=== PATIENT | male | born 1935 | race Caucasian/White ===

== ENCOUNTER 2017-03-11 23:44 | Inpatient (IN) | payer MEDICARE, OTHER ==
--- NOTE | ~2017-03-11 | DS ---
Discharge Summary [facility] [address] [facility] [place] [address] NAME: ELIER WATSON JUNIOR : 37 STATUS : DIS IN PAT#: [id number] AGE: 82 ADM/REG DATE : 03/12/17 MR#: [id number] REPORT SERV DATE: 03/13/17 DICTATED BY: PASTOR RIOS DATE: 03/13/17 REPORT STATUS : Draft TRANSCRIBED BY: MODL DATE: 03/13/17 ADMISSION DATE: 03/12/2017 DISCHARGE DATE: 03/13/2017 DISCHARGE DIAGNOSES: 1. Metastatic prostate cancer to the spine. 2. Left hydronephrosis most likely due to tumor burden. 3. Gastrointestinal bleed, lower and now resolved. 4. Recent cerebrovascular accident with hemiplegia, and bed-bound state. 5. Nonischemic cardiomyopathy with an ejection fraction of 25%. 6. Severe mitral regurgitation. 7. Poor performance status with the bed-bound state. 8. Hypothyroidism. 9. Atrial fibrillation. 10.Pacer/AICD placement. 11.Gastroesophageal reflux disease. 12.Arteriovenous malformations of the colon. 13.Medication induced idiopathic thrombocytopenic purpura. 14.History of thyroid cancer in 2008 status post radioiodine ablation and surgery followed by Dr. Malone. CONSULTANTS DURING THIS HOSPITALIZATION: Dr. Mata of Urology. INVASIVE PROCEDURES DONE DURING THIS HOSPITALIZATION: None. BRIEF HISTORY OF PRESENT ILLNESS: The patient is an 82-year-old white male with a recent large stroke and hemiplegia, was at a [facility], presented with bright red blood per rectum, so he was admitted for detailed history and physical exam, please see the note dictated by Dr. Raghav Francisco on 03/12/2017. HOSPITAL COURSE: After being admitted to the hospital, this patient underwent fluid resuscitation. When I saw the patient and reviewed his care, it was evident that this patient has severely debilitated state, poor performance status, and multiple comorbidities, and terminal illnesses which would preclude him from any kind of surgical intervention, chemotherapy or radiation therapy at that point, I had a long discussion with the family regarding hospice, and the family has decided to return the patient back to nursing home facility with comfort measures, but no hospice due to financial resources. This patient remains critically ill from multiple comorbidities, but the approach is correct to keep him comfortable. We have discontinued his Coumadin as he is not a candidate for that at this time because of his GI bleed. His H and H have remained stable in the last [address] Mata agrees that there is no further urological intervention for the left hydronephrosis which may be partially blocked. He does have a normal creatinine and a normal functioning right kidney. DISCHARGE DISPOSITION: Back to nursing home facility. Discharge Summary [address] [place]. [address] NAME: ELIER WATSON JUNIOR : 36 STATUS : DIS IN PAT#: [id number] AGE: 82 ADM/REG DATE : 03/12/17 MR#: [id number] REPORT SERV DATE: 03/13/17 DICTATED BY: PASTOR RIOS DATE: 03/13/17 REPORT STATUS : Draft TRANSCRIBED BY: OPAL DATE: 03/13/17 DISCHARGE ACTIVITY: The patient is bed-bound. DISCHARGE DIET: The patient is on tube feedings. DISCHARGE MEDICATIONS: Norvasc 5 mg once daily, aspirin 81 mg once daily, digoxin 0.125 mg once daily, Isordil 10 mg twice daily, levothyroxine 25 mcg once daily, levothyroxine plus 200 mcg daily, Reglan 10 mg before every meal, Lopressor 50 mg twice daily, Prilosec 20 mg once daily, Entresto 49/51 mg one tablet twice daily, Aldactone 25 mg once daily, Dulcolax 10 mg daily per rectum p.r.n., docusate 50 mg twice daily p.r.n., Lasix 40 mg p.o. twice daily, and Crestor 20 mg p.o. once at bedtime. DISCHARGE FOLLOWUP: With the physician at the nursing home facility. More than 30 minutes spent in planning this patient's discharge, discussing hospice care, and making arrangements for returning back the patient to the nursing home facility for comfort measures. This patient truly meets criteria for inpatient as it would have not been possible to arrange all these in an outpatient setting without having extensive discussions with the family in the outpatient setting. DICTATED BY: Anabelle White/OPAL Pastor Rios M.D. / [id number] CC: MD Sam Hernandez M.D.
--- NOTE | ~2017-03-11 | HP ---
History And Physical [place] [id number] [facility] [place]. [address] NAME: ELIER WATSON JUNIOR : 36 STATUS : ADM IN [facility]#: [id number] AGE: 82 ADM/REG DATE : 03/12/17 MR#: [id number] REPORT SERV DATE: 03/12/17 DICTATED BY: STORM CRESPO DATE: 03/12/17 REPORT STATUS : Draft TRANSCRIBED BY: MODL DATE: 03/12/17 DATE OF ADMISSION: 03/12/2017 CHIEF COMPLAINT: An 82-year-old male with recent stroke in early 02/2017, now presenting with bright red blood per rectum, confusion, back pain, and abdominal pain. HISTORY OF PRESENTING ILLNESS: The patient's history was obtained through interview with the patient's by telephone, a limited interview with the patient himself, review of medical records from [facility], as well as medical records obtained from [facility] and from [facility] [place]. The patient presented with a stroke in 02/2017 at [facility]. He apparently has had new-onset left hemiplegia, debilitation, dysarthria, aphasia, and dysphagia requiring a PEG tube. He was able to recover from the stroke to a degree, but needed rehabilitation, so was sent to [facility] earlier this month. He has had limited improvement in his physical therapy and recovery at that facility, but then in the last few days, has been describing increasing back pain and abdominal pain. He is able to describe it in his mid and lower back as well as the suprapubic area of his abdomen, an aching quality, very severe, but he is unable to give a numerical severity. Also tonight, the patient became overtly confused, lethargic at times and he had worsening of his baseline aphasia associated with this. What was of particular concern to the facility, the patient also had a large bloody bowel movement. REVIEW OF SYSTEMS: Otherwise, a 14-point review of systems was obtained and was negative, though could question validity in light of the patient's confusion and lethargy. PAST MEDICAL HISTORY: 1. Stroke with left hemiplegia, dysphagia, and aphasia. 2. Thyroid cancer, 2009, status post iodine ablation and surgery, followed by Dr. Malone. 3. Hypothyroidism. 4. Prostate cancer, status post radiation therapy, seen by Dr. Martin. 5. Atrial fibrillation. 6. Pacer/AICD placement. 7. Systolic congestive heart failure with nonischemic cardiomyopathy, 25% ejection fraction, followed by Dr. Chaidez. 8. Gastroesophageal reflux disorder, peptic ulcer disease, seen by [facility]. 9. Angioectasia of the colon. 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 11.Urinary tract infections. History And Physical [address] [address] NAME: ELIER WATSON JUNIOR : 37 STATUS : ADM IN [facility]#: [id number] AGE: 82 ADM/REG DATE : 03/12/17 MR#: [id number] REPORT SERV DATE: 03/12/17 DICTATED BY: STORM CRESPO DATE: 03/12/17 REPORT STATUS : Draft TRANSCRIBED BY: OPAL DATE: 03/12/17 12.Severe mitral regurgitation, moderate aortic regurgitation, moderate tricuspid regurgitation. 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 PAST SURGICAL HISTORY: 1. Pacer/AICD placement. 2. Thyroidectomy. 3. Emilio fundoplication. 4. PEG tube placement. 5. Bilateral hernia repair. 6. Right rotator cuff repair. 7. Vein stripping, bilateral legs. CODE STATUS: DNR. ALLERGIES: PENICILLIN. SOCIAL HISTORY: No tobacco abuse. No alcohol abuse. Resides at [facility]. Retired from the [employer]. Lives in [place], [place]. Is . FAMILY HISTORY: Father with coronary artery disease. Mother with stroke. Strong family history of cancer. CURRENT MEDICATIONS: Unknown at this time, but we have requested pharmacy to help us obtain a list. PHYSICAL EXAMINATION: VITAL SIGNS: Temperature 97.8, pulse 80, blood pressure 150/91, respiratory rate 18, O2 saturation 100% on 2 L nasal cannula. GENERAL: A chronically ill-appearing male. He is in no evidence of acute distress at this time. HEENT: Pupils equal, round, and reactive to light. No conjunctival pallor. No scleral icterus. Nares are patent. Oropharynx is clear of obstruction. Moist mucous membranes. NECK: Trachea midline. No thyromegaly. LYMPH: No cervical lymphadenopathy. No supraclavicular lymphadenopathy. RESPIRATORY: Clear to auscultation at bases. No wheezes, rales, or rhonchi. Normal respiratory effort. CARDIOVASCULAR: Regular rate and rhythm. No murmurs, rubs, or gallops. No extremity edema is appreciated. ABDOMEN: Significant suprapubic abdominal pain as well as bilateral flank pain. There is guarding. No rebound. Nondistended abdomen. No hepatosplenomegaly. DERMATOLOGICAL: Warm and dry extremities. No pallor. No cyanosis. PSYCHIATRIC: Normal affect. Good mood. The patient has difficulty with orientation to time, location, and his recent history. LABORATORY DATA: White blood cell count 5.9, hemoglobin 10, hematocrit 31, platelets 220. Sodium 143, potassium 3.3, chloride 106, bicarb 30, BUN 18, creatinine 0.95, glucose 151. History And Physical [address] [address] NAME: ELIER WATSON JUNIOR : 36 STATUS : ADM IN [facility]#: [id number] AGE: 82 ADM/REG DATE : 03/12/17 MR#: [id number] REPORT SERV DATE: 03/12/17 DICTATED BY: STORM CRESPO DATE: 03/12/17 REPORT STATUS : Draft TRANSCRIBED BY: OPAL DATE: 03/12/17 Brain natriuretic peptide 326. Troponin 0.06. INR 1.2. Liver enzymes, within normal limits. Urinalysis, negative for infection. STUDIES: 1. CT scan of the abdomen and pelvis shows extensive thoracic and lumbar spine osteoblastic lesions consistent with metastatic prostate cancer. Also, significant left hydroureter and hydronephrosis. 2. EKG by my own evaluation shows ventricular pacing. 3. Chest x-ray by my own evaluation shows no acute cardiopulmonary process. ASSESSMENT AND PLAN: 1. Metastatic prostate cancer. Obtain an Oncology consult to consider therapeutic options. Particularly, the patient is having spinal pain as we may consider radiation therapy? Check a PSA. 2. Hydronephrosis and hydroureter with possible pelvic mass effect causing this. Consult Dr. Mata, urologist, who is aware of the case. 3. Gastrointestinal bleed. Consult [facility]. The patient has positive Hemoccult. 4. Late effects of stroke with left hemiplegia, significant dysphagia. 5. PEG tube placed. 6. Nonischemic cardiomyopathy, ejection fraction 25% with severe mitral regurgitation, moderate aortic regurgitation, and moderate tricuspid regurgitation. Monitor volume status closely. KPL/MODL Storm Crespo M.D. / [id number] CC: MD VERNELL Hernandez MD
--- NOTE | ~2017-03-11 | CN ---
Consultation Report [address] [place]. [address] NAME: ELIER LOCKETT JUNIOR : 36 STATUS : ADM IN PAT#: [id number] AGE: 82 ADM/REG DATE : 03/12/17 MR#: [id number] REPORT SERV DATE: 03/13/17 DICTATED BY: Mayo WILLARD DATE: 03/13/17 REPORT STATUS : Draft TRANSCRIBED BY: OPAL DATE: 03/13/17 CONSULTATION DATE OF CONSULTATION: 03/12/2017 CHIEF COMPLAINT: Metastatic prostate cancer with new-onset left hydronephrosis. HISTORY OF PRESENT ILLNESS: Mr. Lockett is an 82-year-old white male, well known to me, with a history of prostate cancer treated with external beam radiation therapy at some point in the past. He developed a recurrence with a rising PSA and ultimately was put on androgen deprivation therapy. He has developed widely metastatic bony disease and has a host of other medical problems. He came in to the emergency room with bright red blood per rectum, confusion, and nonspecific back pain. He had a recent CVA earlier in February of this year. PAST MEDICAL HISTORY: 1. Prostate cancer, status post radiation therapy with widespread metastatic disease. 2. Recent CVA. 3. Thyroid cancer. 4. Hypothyroidism. 5. Severe congestive heart failure with cardiomyopathy. 6. GERD. 7. Recurrent urinary tract infections. 8. Severe mitral regurgitation. PAST SURGICAL HISTORY: 1. Placement of pacemaker. 2. Thyroidectomy. 3. Emilio fundoplication. 4. Vein stripping. 5. Right rotator cuff. 6. Bilateral hernia repair. HOME MEDICATIONS: Amlodipine, aspirin, bisacodyl, digoxin, docusate, furosemide, isosorbide, levothyroxine, metoclopramide, metoprolol, omeprazole, rosuvastatin, Entresto, spironolactone, Coumadin. ALLERGIES: PENICILLIN CAUSES HIVES. SOCIAL HISTORY: The patient denies current use of tobacco or alcohol. He resides in a shelter. FAMILY HISTORY: Negative for urologic disease. PHYSICAL EXAMINATION: Consultation Report [address] [place]. [address] NAME: ELIER LOCKETT JUNIOR : 37 STATUS : ADM IN PAT#: [id number] AGE: 82 ADM/REG DATE : 03/12/17 MR#: [id number] REPORT SERV DATE: 03/13/17 DICTATED BY: Mayo WILLARD DATE: 03/13/17 REPORT STATUS : Draft TRANSCRIBED BY: OPAL DATE: 03/13/17 GENERAL: Alert, elderly white male. He is dysarthric from his recent CVA, but recognizes me. VITAL SIGNS: Afebrile. LUNGS: No respiratory distress. HEART: Regular rate and rhythm. ABDOMEN: Nontender. Nondistended. No CVA tenderness noted. GENITOURINARY: Indwelling Rivera catheter, draining clear urine. EXTREMITIES: No significant peripheral edema. PERTINENT LABORATORY: White count 5900, hemoglobin 10, creatinine 0.95. Urinalysis, negative. PSA 14.3. PERTINENT X-RAY: CT shows extensive osteoblastic metastatic disease with new-onset left hydroureter and hydronephrosis. IMPRESSION: 1. Metastatic prostate cancer, progressive. 2. New-onset left hydronephrosis, presumably asymptomatic. 3. Multiple medical problems. PLAN: He does not appear to be symptomatic from his hydronephrosis. He does have a lot of back pain, but that is probably due to his metastatic disease. He appears to be comfortable with medications just given. He denies any voiding complaints. His catheter is draining well. He is tolerating that. I was present in the room with the hospitalist who had a long discussion with the patient and family regarding hospice. I think that is a very reasonable consideration at this stage. I do not think that stent placement or other manipulation has much to offer. Certainly, if his situation should change, we could reassess it, but at this point in time, I agree with hospice and plan to be available for intervention as necessary. The family and the patient appeared to agree with this. JPD/OPAL Mayo Willard M.D. / [id number] CC: MD Sam Hernandez M.D.
[2017-03-11 22:19] LABS: BASOPHILS 0.2 %; BASOPHILS ABSOLUTE 0.01 10/3/uL (0.0-0.16); EOSINOPHILS ABSOLUTE 0.12 10/3/uL (0.0-0.53); HEMOGLOBIN 10.3 g/dL (13.6-17.8); IMMATURE GRANULOCYTES 0.2 %; IMMATURE GRANULOCYTES ABSOLUTE 0.01 10/3/uL (0.0-0.11); LYMPHOCYTES ABSOLUTE 0.47 10/3/uL (0.67-4.30); MEAN CORPUS HGB CONC 33.2 g/dL (32.0-36.0); MEAN CORPUSCULAR HEMOGLOB 28.8 pg (26.0-34.0); MEAN PLATELET VOLUME 10.2 fL (9.2-13.0); MONOCYTES ABSOLUTE 0.41 10/3/uL (0.21-1.20); NEUTROPHILS 82.6 %; NEUTROPHILS ABSOLUTE 4.85 10/3/uL (2.02-8.40); RED CELL COUNT 3.58 10/6/uL (4.7-6.1); WHITE BLOOD CELLS 5.9 10/3/uL (4.5-10.5)
[2017-03-11 22:20] LABS: MANUAL DIFF NO %; MEAN CORPUSCULAR VOLUME 86.6 fL (80-100); PLATELET COUNT 220 10/3/uL (150-400)
[2017-03-11 22:29] LABS: INTERNATIONAL NORMAL RATI 1.2 UNITS (-); PARTIAL THROMBO TIME 36.1 SEC (22.5-37.2)
[2017-03-11 22:32] LABS: PROTIME (NOT ORD) 15.2 SEC (12.0-14.5)
[2017-03-11 22:33] LABS: A/G RATIO 0.9 (0.7-1.9); ALBUMIN 3.2 G/DL (3.5-5.0); ALKALINE PHOSPHATASE 59 U/L (45-117); BUN (BLOOD UREA NITROGEN) 18 MG/DL (6-23); CALCIUM, SERUM 8.9 MG/DL (8.5-10.4); CHLORIDE, SERUM 106 MMOL/L (96-112); CO2 (CARBON DIOXIDE) 30 MMOL/L (24-34); CREATININE 0.95 MG/DL (0.70-1.30); GFR AFRICAN AMERICAN 87 ML/MIN (>=60); GFR NON AFRICAN AMERICAN 75 ML/MIN (>=60); GLOBULIN 3.5 G/DL (2.5-4.1); GLUCOSE, SERUM 151 MG/DL (60-99); POTASSIUM, SERUM 3.3 MMOL/L (3.5-5.3); SGOT(AST) 23 U/L (5-40); SGPT(ALT) 17 U/L (5-65); SODIUM, SERUM 143 MMOL/L (135-148); TOTAL BILIRUBIN 0.8 MG/DL (0-1.2); TOTAL PROTEIN 6.7 G/DL (6.0-8.5)
[2017-03-11 23:22] LABS: ALBUMIN 3.2 G/DL (3.5-5.0); ALKALINE PHOSPHATASE 62 U/L (45-117); BUN (BLOOD UREA NITROGEN) 18 MG/DL (6-23); CHLORIDE, SERUM 107 MMOL/L (96-112); CO2 (CARBON DIOXIDE) 27 MMOL/L (24-34); CREATININE 0.95 MG/DL (0.70-1.30); DIRECT BILIRUBIN 0.2 MG/DL (0.0-0.4); GFR AFRICAN AMERICAN 87 ML/MIN (>=60); GFR NON AFRICAN AMERICAN 75 ML/MIN (>=60); GLUCOSE, SERUM 146 MG/DL (60-99); INDIRECT BILIRUBIN(NOT ORDER) 0.6 MG/DL (0.1-0.9); POTASSIUM, SERUM 3.5 MMOL/L (3.5-5.3); SGOT(AST) 28 U/L (5-40); SGPT(ALT) 20 U/L (5-65); SODIUM, SERUM 144 MMOL/L (135-148); TOTAL BILIRUBIN 0.8 MG/DL (0-1.2); TOTAL PROTEIN 6.9 G/DL (6.0-8.5)
[2017-03-11 23:23] LABS: CHEST PAIN PROFILE TAT 0 Hrs 23 Mins; TROPONIN I 0.06 NG/ML (<0.05)
[2017-03-11 23:37] LABS: ASCORBIC ACID (UR NOT ORDER) NEG (NEG); BILIRUBIN, URINE NEGATIVE (NEG); KETONE, URINE NEGATIVE (NEG); LEUKOCYTE ESTERASE(NOT OR NEG (NEG); NITRITE (URINE) NEG (NEG); WBC (NOT ORDERED) (RFLEX) 1 (0-5)
[~2017-03-11 23:44] MED LIST: ADVIL PO; ATEN25 PO; ATEN50 PO; BC POWDER PO; BETAPACE160 MG PO; C5 PO; CARDURA8 MG PO; COUMADIN7.5 MG; COUMADIN7.5 MG PO; DIGITEK0.125 MG PO; DIOV160 PO; DIOVAN320 MG PO; FERROUS SULF325 M1 PO; IRON PO; IRON TAB PO; KLOR-CON M2020 MEQ PO; L20 PO; L40 PO; LAN125 PO; LEVAQUIN750 MG PO; LEVOTHROID125 MCG PO; LEVOTHYROXIN IM; LEVOTHYROXIN100 MCG PO; LEVOTHYROXIN200 MCG PO; LEVOTHYROXIN25 MCG PO; LOP100 PO; LOP50 PO; MAGNESIUM PO; MAGONATE PO; MAX25 PO; METAMUCIL CAN7 OZ PO; MONOKET PO; NEXIUM40 PO; NORV10 PO; NORV5 PO; PRILO PO; PRILOSEC OTC20 MG PO; PRIN20 PO; PROSTEON PO; PYR200 PO; SACU1TAB PO; SACU1TAB7 PO; SPIRO25 PO; SYN.025B PO; SYNTHROID200 MCG PO; WELCHOL625 MG OR; ZESTRIL20 MG PO; [UNRECOGNIZED DRUG - OTHER] PO
[2017-03-12 00:54] LABS: DIGOXIN 0.3 NG/ML (0.8-2.0)
[2017-03-12] MEDS ORDERED: NORV5 PO (01:05)
[2017-03-12] MEDS ORDERED: ASAB PO (01:05)
[2017-03-12] MEDS ORDERED: LAN125 PO (01:05)
[2017-03-12] MEDS ORDERED: SACU1TAB7 PO (01:05)
[2017-03-12] MEDS ORDERED: L40 PO (01:06)
[2017-03-12] MEDS ORDERED: ISORDIL10 PO (01:06)
[2017-03-12] MEDS ORDERED: SYN.025B PO (01:07)
[2017-03-12] MEDS ORDERED: LEVOTHYROXIN200 MCG PO (01:07)
[2017-03-12] MEDS ORDERED: CRESTOR20 MG PO (01:08)
[2017-03-12] MEDS ORDERED: PRILO PO (01:08)
[2017-03-12] MEDS ORDERED: LOP50 PO (01:08)
[2017-03-12] MEDS ORDERED: REG PO (01:08)
[2017-03-12] MEDS ORDERED: SPIRO25 PO (01:09)
[2017-03-12] MEDS ORDERED: C5 PO (01:09)
[2017-03-12] MEDS ORDERED: DIOCTO50 MG/5 ML PO (01:10)
[2017-03-12] MEDS ORDERED: BISR PR (01:10)
[2017-03-12 15:18] LABS: BASOPHILS 0.2 %; BASOPHILS ABSOLUTE 0.01 10/3/uL (0.0-0.16); EOSINOPHILS 4.6 %; EOSINOPHILS ABSOLUTE 0.25 10/3/uL (0.0-0.53); HEMATOCRIT 27.2 % (40.0-51.0); HEMOGLOBIN 8.9 g/dL (13.6-17.8); IMMATURE GRANULOCYTES 0.2 %; IMMATURE GRANULOCYTES ABSOLUTE 0.01 10/3/uL (0.0-0.11); LYMPHOCYTES 11.1 %; LYMPHOCYTES ABSOLUTE 0.61 10/3/uL (0.67-4.30); MANUAL DIFF NO %; MEAN CORPUS HGB CONC 32.7 g/dL (32.0-36.0); MEAN CORPUSCULAR HEMOGLOB 28.4 pg (26.0-34.0); MEAN CORPUSCULAR VOLUME 86.9 fL (80-100); MEAN PLATELET VOLUME 10.6 fL (9.2-13.0); MONOCYTES 6.7 %; MONOCYTES ABSOLUTE 0.37 10/3/uL (0.21-1.20); NEUTROPHILS 77.2 %; NEUTROPHILS ABSOLUTE 4.24 10/3/uL (2.02-8.40); PLATELET COUNT 189 10/3/uL (150-400); RBC DISTRIBUTION WIDTH 17.2 % (12.0-16.0); RED CELL COUNT 3.13 10/6/uL (4.7-6.1); WHITE BLOOD CELLS 5.5 10/3/uL (4.5-10.5)
[2017-03-12 15:40] LABS: PARTIAL THROMBO TIME 27.4 SEC (22.5-37.2)
[2017-03-12 15:41] LABS: A/G RATIO 0.8 (0.7-1.9); ALBUMIN 2.6 G/DL (3.5-5.0); ALKALINE PHOSPHATASE 52 U/L (45-117); BUN (BLOOD UREA NITROGEN) 16 MG/DL (6-23); CALCIUM, SERUM 8.4 MG/DL (8.5-10.4); CHLORIDE, SERUM 109 MMOL/L (96-112); CK-MB 1.3 NG/ML; CO2 (CARBON DIOXIDE) 26 MMOL/L (24-34); CPK 40 U/L (0-200); GFR AFRICAN AMERICAN 97 ML/MIN (>=60); GFR NON AFRICAN AMERICAN 84 ML/MIN (>=60); GLOBULIN 3.1 G/DL (2.5-4.1); GLUCOSE, SERUM 97 MG/DL (60-99); POTASSIUM, SERUM 3.4 MMOL/L (3.5-5.3); SGOT(AST) 26 U/L (5-40); SGPT(ALT) 18 U/L (5-65); SODIUM, SERUM 144 MMOL/L (135-148); TOTAL BILIRUBIN 0.6 MG/DL (0-1.2); TOTAL PROTEIN 5.7 G/DL (6.0-8.5); TROPONIN I 0.06 NG/ML (<0.05)
[2017-03-12 15:43] LABS: INTERNATIONAL NORMAL RATI 1.3 UNITS (-); PROTIME (NOT ORD) 15.7 SEC (12.0-14.5)
[2017-03-12 16:34] LABS: PROCALCITONIN <0.05 ng/mL (<0.5)
[2017-03-12 18:57] LABS: HEMATOCRIT 27.1 % (40.0-51.0); HEMOGLOBIN 8.8 g/dL (13.6-17.8)
[2017-03-13 01:29] LABS: HEMOGLOBIN 9.4 g/dL (13.6-17.8)
[2017-03-13 06:50] LABS: HEMATOCRIT 28.5 % (40.0-51.0); HEMOGLOBIN 9.4 g/dL (13.6-17.8)
== END 2017-03-13 11:33 | DRG 542 ==
LOC: ER 23:44 → 5SO 03-12 01:31
PROVIDERS: Emergency Medicine; Hospitalist; Nurse Practitioner
DX: C79.51 Secondary malignant neoplasm of bone (principal); K55.21 Angiodysplasia of colon with hemorrhage; D69.3 Immune thrombocytopenic purpura; I50.22 Chronic systolic (congestive) heart failure; I69.351 Hemiplegia and hemiparesis following cerebral infarction affecting right dominant side; I42.8 Other cardiomyopathies; R13.10 Dysphagia, unspecified; N13.30 Unspecified hydronephrosis; Z66 Do not resuscitate; Z51.5 Encounter for palliative care; I34.0 Nonrheumatic mitral (valve) insufficiency; E03.9 Hypothyroidism, unspecified; I48.2 Chronic atrial fibrillation; K21.9 Gastro-esophageal reflux disease without esophagitis; I69.991 Dysphagia following unspecified cerebrovascular disease; I69.920 Aphasia following unspecified cerebrovascular disease; Z85.850 Personal history of malignant neoplasm of thyroid; Z95.810 Presence of automatic (implantable) cardiac defibrillator; Z74.01 Bed confinement status; Z85.46 Personal history of malignant neoplasm of prostate; Z93.1 Gastrostomy status; Z79.899 Other long term (current) drug therapy; Z79.82 Long term (current) use of aspirin; Z92.3 Personal history of irradiation; Z87.440 Personal history of urinary (tract) infections; Z88.0 Allergy status to penicillin; Z82.49 Family history of ischemic heart disease and other diseases of the circulatory system; Z82.3 Family history of stroke; Z80.8 Family history of malignant neoplasm of other organs or systems
CPT/HCPCS: 36415; 71010; 74176; 80048; 80053; 80076; 80162; 81001; 82550; 82553; 83605; 83690; 83735; 83880; 84145; 84443; 84484; 85014; 85018; 85025; 85610; 85730; 86850; 86900; 86901; 93005; 99291; A9270-GY; C9113

== ENCOUNTER 2017-03-27 11:03 | Emergency (ER) | payer MEDICARE, OTHER ==
[~2017-03-27 11:03] MED LIST changes: +ASAB PO; +BISR PR; +CRESTOR20 MG PO; +DIOCTO50 MG/5 ML PO; +ISORDIL10 PO; +REG PO
== END 2017-03-27 19:52 | disposition home or self-care (01) ==
LOC: ER 11:03
DX: Z43.1 Encounter for attention to gastrostomy (principal); I50.9 Heart failure, unspecified; I48.91 Unspecified atrial fibrillation; K21.9 Gastro-esophageal reflux disease without esophagitis; Z95.810 Presence of automatic (implantable) cardiac defibrillator; I69.954 Hemiplegia and hemiparesis following unspecified cerebrovascular disease affecting left non-dominant side; Z85.46 Personal history of malignant neoplasm of prostate; Z88.0 Allergy status to penicillin; Z79.01 Long term (current) use of anticoagulants; Z79.82 Long term (current) use of aspirin; Z79.899 Other long term (current) drug therapy
CPT/HCPCS: 49450; 99283; C1769; Q9967